=== PATIENT | male | born 1990 | race Caucasian/White ===

== ENCOUNTER 2016-12-18 15:30 | Emergency (ER) | payer OTHER ==
[2015-09-04 15:35] VITALS: BMI 21.3
[~2016-12-18 15:30] MED LIST: REGLAN10 MG PO
[2016-12-18 16:50] LABS: BASOPHILS 0.1 % (0-2); EOSINOPHILS 2.6 % (0-7); HEMATOCRIT 42.1 % (42.0-54.0); HEMOGLOBIN 13.8 g/dL (13.5-17.5); IMMATURE GRANULOCYTES 0.3 % (0-5); LYMPHOCYTES 17.9 % (15-50); MCH 30.7 pg (26.0-34.0); MCHC 32.8 g/dL (31.0-37.0); MCV 93.8 fL (80.0-100.0); MEAN PLATELET VOLUME 10.9 fL (7.4-10.4); MONOCYTES 8.7 % (2-11); NEUTROPHILS 70.4 % (40-80); PLATELET COUNT 206 10x3/uL (130-400); RBC 4.49 10x6/uL (4.20-6.10); RDW 13.2 % (11.5-14.5); WBC 12.3 10x3/uL (4.8-10.8)
[2016-12-18 17:10] LABS: ALBUMIN 3.9 g/dL (3.4-5.0); ALKALINE PHOSPHATASE 131 U/L (46-116); ALT (SGPT) 29 U/L (10-68); BILIRUBIN - TOTAL 0.22 mg/dL (0.2-1.3); CALC OSMOLALITY 280 mosm/kg (275-300); CALCIUM 9.2 mg/dL (8.5-10.1); CARBON DIOXIDE 28.9 mmol/L (21.0-32.0); CHLORIDE - SERUM 103 mmol/L (98-107); CREATININE - SERUM 0.8 mg/dL (0.6-1.3); GLUCOSE 91 mg/dL (74-106); POTASSIUM - SERUM 4.8 mmol/L (3.5-5.1); PROTEIN - SERUM 7.7 g/dL (6.4-8.2); SODIUM 140 mmol/L (136-145); UREA NITROGEN 19 mg/dL (7-18); eGFR NON AFRICAN AMERICAN > 90 mL/min (90-120)
[2016-12-18 17:41] LABS: APPEARANCE CLEAR (CLEAR); BILIRUBIN NEGATIVE (NEGATIVE); COLOR YELLOW (YELLOW); GLUCOSE NEGATIVE (NEGATIVE); KETONE NEGATIVE (NEGATIVE); LEUKOCYTE ESTERASE TRACE (NEGATIVE); NITRITE NEGATIVE (NEGATIVE); PROTEIN NEGATIVE (NEGATIVE); SPECIFIC GRAVITY 1.015 (1.005-1.020); UROBILINOGEN NORMAL (NORMAL)
[2016-12-18 17:43] LABS: RED CELLS - URINE OCC /hpf (0-5)
[2016-12-18 17:44] LABS: BACTERIA FEW /hpf (NONE SEEN)
== END 2016-12-18 18:58 | disposition home or self-care (01) ==
LOC: D.ER 15:30
PROVIDERS: Emergency Medicine
DX: K59.00 Constipation, unspecified (principal); K56.41 Fecal impaction

== ENCOUNTER 2019-03-31 19:30 | Emergency (ER) | payer SELFPAY ==
[~2019-03-31] VITALS: Ht 172.7 cm; Wt 63.7 kg
[2019-03-31 19:34] VITALS: BP 111/70; Ht 172.7 cm; Wt 63.7 kg
== END 2019-03-31 21:30 | disposition home or self-care (01) ==
LOC: D.ER 19:30
DX: M79.606 Pain in leg, unspecified (principal)

== ENCOUNTER 2020-04-19 15:21 | Emergency (ER) | payer SELFPAY ==
[~2020-04-19] VITALS: Ht 172.7 cm; Wt 63.6 kg
[2020-04-19 16:10] VITALS: Ht 172.7 cm; Wt 63.6 kg
[2020-04-19] MEDS ORDERED: NAPROSYN500 MG PO (20:01)
[2020-04-19] MEDS ORDERED: HYDROCODON-ACE1 EAC7 PO (20:01)
[2020-04-19 20:27] VITALS: BP 131/86
== END 2020-04-19 20:29 | disposition home or self-care (01) ==
LOC: D.ER 15:21
DX: S93.402A Sprain of unspecified ligament of left ankle, initial encounter (principal); W22.8XXA Striking against or struck by other objects, initial encounter; Y93.9 Activity, unspecified; Y92.9 Unspecified place or not applicable

== ENCOUNTER 2021-01-02 15:23 | Emergency (ER) | payer MEDICAID ==
[~2021-01-02] VITALS: Ht 172.7 cm; Wt 70.5 kg
[~2021-01-02 15:23] MED LIST changes: +GOLYTELY SOLU4000 ML PO; +HYDROCODON-ACE1 EAC7 PO; +NAPROSYN500 MG PO
[2021-01-02 15:33] VITALS: BP 130/70; Ht 172.7 cm; Wt 70.5 kg
[2021-01-02 15:58] LABS: UDS - AMPHET POSITIVE QUAL (NEGATIVE); UDS - BARB NEGATIVE QUAL (NEGATIVE); UDS - BENZO NEGATIVE QUAL (NEGATIVE); UDS - COCAINE NEGATIVE QUAL (NEGATIVE); UDS - OPIATE NEGATIVE QUAL (NEGATIVE); UDS - PCP NEGATIVE QUAL (NEGATIVE); UDS - THC POSITIVE QUAL (NEGATIVE)
[2021-01-02 16:11] LABS: BACTERIA FEW HPF (<MOD); BILIRUBIN NEGATIVE (NEGATIVE); KETONE 1+ mg/dL (< 1+); NITRITE NEGATIVE (NEGATIVE); PH 5.5 (5.0-8.0); SQUAMOUS EPITHELIAL 1 HPF (0-4); UROBILINOGEN 4 mg/dL (< 2); WHITE CELLS - URINE 55 HPF (0-1)
[2021-01-02 17:00] LABS: ANION GAP 16.9 mmol/L (8-16); CALCIUM 8.4 mg/dL (8.5-10.1); CARBON DIOXIDE 22.3 mmol/L (21.0-32.0); CREATININE - SERUM 1.4 mg/dL (0.6-1.3); POTASSIUM - SERUM 4.2 mmol/L (3.5-5.1)
[2021-01-02 17:06] LABS: ALBUMIN 3.9 g/dL (3.4-5.0); BILIRUBIN - TOTAL 1.01 mg/dL (0.2-1.3); PROTEIN - SERUM 7.7 g/dL (6.4-8.2)
[2021-01-02 17:23] LABS: BASOPHILS 0.1 % (0-2); EOSINOPHILS 0.6 % (0-7); HEMATOCRIT 38.8 % (42.0-54.0); HEMOGLOBIN 12.8 g/dL (13.5-17.5); LYMPHOCYTES 6.9 % (15-50); MCH 28.7 pg (26.0-34.0); MEAN PLATELET VOLUME 8.6 fL (7.4-10.4); MONOCYTES 8.9 % (2-11); NEUTROPHILS 83.5 % (40-80); PLATELET COUNT 223 10x3/uL (130-400); RBC 4.46 10x6/uL (4.20-6.10); RDW 13.9 % (11.5-14.5); WBC 12.4 10x3/uL (4.8-10.8)
[2021-01-02] MEDS ORDERED: OMNICEF300 MG PO (17:51)
== END 2021-01-02 18:11 | disposition home or self-care (01) ==
LOC: D.ER 15:23
PROVIDERS: Family Medicine
DX: N17.9 Acute kidney failure, unspecified (principal); E86.0 Dehydration; F15.10 Other stimulant abuse, uncomplicated; N39.0 Urinary tract infection, site not specified